=== PATIENT | female | born 1940 | race Caucasian/White ===

== ENCOUNTER 2019-01-28 07:56 | Emergency (ER) | payer OTHER, MEDICARE ==
[~2019-01-28] VITALS: Ht 162.6 cm; Wt 61.2 kg
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
[2019-01-28] MEDS ORDERED: TETANUS,DIPTH,PERTUSS P/F (BOOSTRIX) 0.5 ML VIAL IM ONE (08:30)
--- NOTE | 2019-01-28 08:35 | Diagnostic Imaging Report ---
INDICATION: Left elbow pain. Comparison: None available. Technique: 3 views of the left elbow. Findings: No elbow joint effusion. No fracture or traumatic malalignment. Normal osseous mineralization without erosions. Joint spaces are preserved. IMPRESSION: No acute fracture about the left elbow. Dictated by: Dictated on workstation # [id number]
[2019-01-28 09:14] VITALS: BP 127/47
== END 2019-01-28 09:15 | disposition home or self-care (01) ==
LOC: ER FS 08:03
DX: S50.02XA Contusion of left elbow, initial encounter (principal); E78.00 Pure hypercholesterolemia, unspecified; E03.9 Hypothyroidism, unspecified; V49.40XA Driver injured in collision with unspecified motor vehicles in traffic accident, initial encounter; Y92.410 Unspecified street and highway as the place of occurrence of the external cause
CPT/HCPCS: 73070; 90715

== ENCOUNTER → 2021-06-10 | Outpatient (CLI) | payer MEDICARE ==
--- NOTE | 2021-06-10 09:56 | Diagnostic Imaging Report ---
PROCEDURE: CT abdomen without contrast. TECHNIQUE: Multiple contiguous axial images were obtained through the abdomen without the use of intravenous contrast. Auto Exposure Controls were utilized during the CT exam to meet ALARA standards for radiation dose reduction. INDICATION: 80-year-old female, knot in mid abdomen for a while. Nonpainful. CORRELATION STUDY: None. FINDINGS: The lung bases are clear. Heart size is normal. Moderate-sized esophageal hernia. Slight stranding of the fat surrounding the hernia. The liver, contracted gallbladder, spleen, atrophic pancreas, and adrenal glands demonstrate no acute abnormality. Kidneys have a generally unremarkable appearance. No calcification or obstruction. Mild wall calcification of the abdominal aorta, nonaneurysmal. Partially visualized gastrointestinal tract with mild stool within the colon. No obstruction or inflammatory change. There are at least three midline abdominal wall hernia defects present. One is located in the upper abdomen measuring approximately 5 cm in width and contains a small amount of a herniated portion of the distal anterior stomach and fat as well as vessels. Just slightly inferior to this and just to the left of midline, there is an additional fat-containing hernia, 3.7 cm in size. Slightly inferior to this just to the right of midline is an additional fat-containing hernia, 14 mm in width. Moderate compression deformities of the superior T12 and to a lesser degree the L1 endplate. Trace anterolisthesis of L4 on L5. Pelvis is not included on this study. IMPRESSION: 1. Three midline abdominal wall hernia defects. Most superior one contains portions of the stomach to be included in the herniated contents. 2. Small to moderate hiatal hernia. Slight haziness of the fat surrounding the hernia could be reflective of mild inflammation. Dictated by: Dictated on workstation # [id number]
== END ==
LOC: RAD FS 08:44
PROVIDERS: ATTEND Family Medicine
DX: K43.9 Ventral hernia without obstruction or gangrene (principal); K44.9 Diaphragmatic hernia without obstruction or gangrene
CPT/HCPCS: 74150